=== PATIENT | female | born 1975 ===

== ENCOUNTER 2017-09-05 09:21 | Emergency (ER) | payer OTHER ==
[2017-09-05 09:48] VITALS: BP 114/69
--- NOTE | 2017-09-05 11:42 | UC ---
Evelia Snyder Rebecca, scribed for Angelia Barr DO on 09/05/17 at 1005 . Respiratory Complaint HPI - HPI Summary HPI Summary: Pt is a 42 y/o F who presents to [facility] c/o sinus congestion and productive cough with green phlegm for the past week. The last 2 nights she has been unable to sleep due to cough which is not producing any blood. Cough has been worse with in the morning and is aggravated by talking and exhaling too quickly. Additionally c/o sinus REED, bilateral ear pain (R>L), and rhinorrhea. Associated pain is moderate, ranked 5/10 on triage. Denies any other symptoms including throat pain, SOB, CP, N/V, abdominal pain, myalgias, arthralgias, rash. Daughter had a recent ear infection. PMHx frequent sinus infections and seasonal allergies. Prior similar episodes typically resolve within a few days, though this is persisting. - History of Current Complaint Chief Complaint: UCRespiratory Stated Complaint: SINUS COMPLAINT Time Seen by Provider: 09/05/17 09:50 Hx Obtained From: Patient Onset/Duration: Lasting Weeks - 1 week, Still Present Severity Currently: Moderate Pain Intensity: 5 Pain Scale Used: 0-10 Numeric Character: Cough: Productive Aggravating Factors: Other - Talking, exhaling too quickly Alleviating Factors: Nothing Associated Signs And Symptoms: Positive: Nasal Congestion. Negative: Dyspnea, Pleuritic Chest Pain Related History: Seasonal Allergies - Allergies/Home Medications Allergies/Adverse Reactions: Allergies Allergy/AdvReac Type Severity Reaction Status Date / Time cefprozil [From Cefzil] Allergy Hives Verified 09/05/17 09:48 PMH/Surg Hx/FS Hx/Imm Hx - Additional Past Medical History Additional PMH: NEGATIVE PMHx: HTN Respiratory History: Other Other Respiratory History: Seasonal Allergies, frequent sinus infections - Surgical History Surgical History: Yes Surgery Procedure, Year, and Place: D&C - Family History Known Family History: Positive: Cardiac Disease - Grandfather (in 90's), Other - Alzheimer's (grandmother) - Social History Alcohol Use: Occasionally Substance Use Type: None Smoking Status (MU): Never Smoked Tobacco Review of Systems Constitutional: Negative Skin: Negative Eyes: Negative ENT: Ear Ache - Bilateral, Nasal Discharge, Sinus Congestion Respiratory: Cough Cardiovascular: Negative Gastrointestinal: Negative Genitourinary: Negative Motor: Negative Neurovascular: Negative Musculoskeletal: Negative Neurological: Headache - Sinus REED Psychological: Negative All Other Systems Reviewed And Are Negative: Yes - Comments Additional Review of Systems Comments: NEGATIVE: Throat pain, SOB, CP, N/V, abdominal pain, myalgias, arthralgias, rash Physical Exam - Summary Physical Exam Summary: Appearance: Well-Appearing, No Pain Distress, Well-Nourished Eyes: conjunctiva clear, no discharge ENT: Sinus tenderness, suborbital congestion, pale boggy nasal mucosa, TMs normal, negative tonsillar swelling, negative tonsillar exudate, negative trismus. Neck: Normal, Supple Respiratory/Lung Sounds: Lungs clear, Prolonged expiration on the bilateral bases, No respiratory distress, No accessory muscle use Cardiovascular: RRR, No murmur Musculoskeletal: Normal Neurological: Alert, muscle tone normal Psychiatric:Normal, age appropriate behavior Skin: Normal, Warm, Dry, Normal color Triage Information Reviewed: Yes Vital Signs: Initial Vital Signs Temp 98.6 F 09/05/17 09:45 Pulse 101 09/05/17 09:45 Resp 18 09/05/17 09:45 BP 114/69 09/05/17 09:45 Pulse Ox 100 09/05/17 09:45 Vital Signs Reviewed: Yes Diagnostic Evaluation - Laboratory O2 Sat by Pulse Oximetry: 100 Respiratory Course/Dx - Course Course Of Treatment: Pt is a 42 y/o F who presents to [facility] c/o sinus congestion and productive cough with green phlegm for the past week. Cough has been worse with in the morning and is aggravated by talking and exhaling too quickly. Additionally c/o sinus REED, bilateral ear pain, and rhinorrhea. Denies any other symptoms including SOB, CP, N/V, abdominal pain, myalgias, arthralgias , rash. PMHx frequent sinus infections and seasonal allergies. Pt will be D/C to home with Dx of sinusitis, bronchospasm, and allergies with Rx for Ventolin Inhaler, Z-Alex, Guaiatussin, and Mucinex. Medications reviewed. Allergies reviewed. - Differential Dx/Diagnosis Provider Diagnoses: Sinusitis, Bronchospasm, Allergies Discharge - Sign-Out/Discharge Documenting (check all that apply): Discharge/Admit/Transfer - Discharge - Discharge Plan Condition: Stable Disposition: HOME Prescriptions: Albuterol HFA INHALER* [Ventolin HFA Inhaler*] 2 puff INH Q4H PRN #1 mdi PRN Reason: Sob/Wheezing Azithromycin TAB* [Zithromax TAB (Z-ALEX) 250 mg #6 tabs] 0 mg PO .SEE INSTRUCTIONS #6 tab Codeine Phosphate/Guaifenesin [Guaiatussin AC] 5 - 10 ml PO BEDTIME PRN #100 ml MDD 10ml PRN Reason: Cough guaiFENesin ER TAB [Mucinex*] 600 mg PO BID PRN #1 box PRN Reason: Cough Patient Education Materials: Sinusitis (ED), Allergies (ED), Bronchospasm (ED) Referrals: No Primary Care Phys,NOPCP [Primary Care Provider] - Additional Instructions: TRY USING THE NETTI POT IN THE MORNINGS DISCUSSED. YOU MUST ALWAYS USE CLEAN WATER. REMEMBER, POSTURE IS AN IMPORTANT FACTOR IN SINUS DRAINAGE. MOVE YOUR NECK, BREATHE. INHALED BRONCHODILATORS: You have received a prescription for an inhaled bronchodilator -- a medication which stimulates the airways in the lung to dilate. This improves the flow of air in asthma, bronchitis, and emphysema. These medicines have some similarity to adrenaline, and can cause similar side effects: shakiness, racing heart, and a sense of nervousness. These side effects decrease with time. Contact your doctor if these side effects are severe. Do not over-use the medicine. Too-frequent use of the inhaler may make it ineffective. Call your doctor if the inhaler is not controlling your symptoms at the prescribed doses. COUGH-SUPPRESSANT & EXPECTORANT MEDICATION: You are to use a cough medication as needed for relief of symptoms. This medicine is a combination of an expectorant (to make the mucous thinner and more easily "coughed up") and a cough suppressant (to reduce the frequency of coughing). The cough-suppressant medicine is related to narcotics. You may experience mild nausea and sleepiness. Some patients who are very sensitive to narcotics may have stomach pain from this medicine. Taking the medicine with food reduces these side effects. Do not drive or work with machinery until you know how this medicine affects you. The expectorant should have no side effects. Iodine-containing expectorants (such as organidin) should not be taken by persons with active thyroid disease unless approved by your doctor. Call the doctor if you develop shortness of breath, hives, rash, itching, lightheadedness, or severe nausea and vomiting. EXPECTORANT MEDICATION: WE SENT IN A SCRIPT FOR MUCINEX SO THAT IT IS EASIER FOR YOU TO PICK THE RIGHT MED AT THE PHARMACY. HOWEVER, YOU CAN ALSO GO TO THE [email or web address] [facility]ORE AND BUY PLAIN GUAIFENESIN WITHOU BINDERS OR FILLERS. An expectorant medicine has been prescribed. This type of drug makes mucous thinner, helping the sinuses, nose, and bronchial tubes to remain free of pus and mucous. Expectorants make a cough less severe and more comfortable, and help infected sinuses drain. In general, antihistamines defeat the purpose of the expectorant by making mucous thicker. They should be avoided unless specifically recommended by your physician. ANTIBIOTICS ARE NOT CURRENTLY INDICATED FOR YOUR CONDITION. HOWEVER, IF YOUR SYMPTOMS WORSEN OR PERSIST FOR OVER THE NEXT 4-5 DAYS, YOU CAN TAKE THE FOLLOWING MEDICATION: AZITHROMYCIN: Azithromycin (Zithromax) is a broad spectrum antibiotic in the same class as erythromycin. It can treat a variety of bacterial infections, but is most frequently used for respiratory infections. Azithromycin is extremely long-lasting. It accumulates in body tissues and continues to kill bacteria for many days. In order to improve absorption, Azithromycin should be taken at least one hour before or two hours after a meal. It does not have the same strong tendency to upset the stomach as erythromycin and is usually very well tolerated. Patients who have had a rash or other true allergic reactions to erythromycin should not take this medication. Call if you develop gastrointestinal distress, severe diarrhea, rash, hives, itching, or shortness of breath. ANYTIME YOU TAKE AN ANTIBIOTIC, IT IS IMPORTANT TO REPLENISH THE BODY'S SUPPLY OF "GOOD BACTERIA." YOU CAN GET GOOD BACTERIA FROM HIGH QUALITY CULTURED FOODS SUCH LOCAL YOGURT, SOUR KRAUT, ADAL ABBEY, NATURALLY FERMENTED PICKLES AND PROBIOTIC DRINKS. YOU CAN ALSO GET GOOD BACTERIA FROM A PROBIOTIC SUPPLEMENT. The documentation as recorded by the Evelia gonzalez Rebecca accurately reflects the service I personally performed and the decisions made by me, Angelia Barr DO.
== END 2017-09-05 10:40 | disposition home or self-care (01) ==
LOC: UCEAST 09:21
DX: J98.01 Acute bronchospasm (principal); J32.9 Chronic sinusitis, unspecified; Z88.8 Allergy status to other drugs, medicaments and biological substances; Z88.1 Allergy status to other antibiotic agents
CPT/HCPCS: 99202; G0463